=== PATIENT | male | born 1995 | race African-American/Black ===

== ENCOUNTER 2016-11-01 22:17 | Emergency (ER) | payer SELFPAY ==
[~2016-11-01] VITALS: Ht 165.1 cm; Wt 74.0 kg
[2016-11-01 22:21] VITALS: BP 144/67; PULSE 95; RESP 16; TEMP 97.6; O2SAT 99
[2016-11-01] MEDS ORDERED: CEPHALEXIN MONOHYDRATE 500 MG CAP PO ONE (23:00)
[2016-11-01] MEDS ORDERED: TETANUS/DIPHTHERIA TOXOID ADULT 0.5 ML VIAL IM ONE (23:00)
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
[2016-11-01] MEDS ORDERED: ACETAMINOPHEN/HYDROcodone 325 MG/5 MG TAB PO ONE (23:30)
[2016-11-01] MEDS ORDERED: HYDR-3533 PO (23:35)
[2016-11-01] MEDS ORDERED: CEPH-460 PO (23:35)
[2016-11-01] MEDS ORDERED: IBUP800T23 PO (23:35)
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
== END 2016-11-02 01:01 | disposition home or self-care (01) ==
LOC: NEPB 22:17
DX: S80.01XA Contusion of right knee, initial encounter (principal); S50.312A Abrasion of left elbow, initial encounter; S50.812A Abrasion of left forearm, initial encounter; S50.811A Abrasion of right forearm, initial encounter; S60.511A Abrasion of right hand, initial encounter; V27.4XXA Motorcycle driver injured in collision with fixed or stationary object in traffic accident, initial encounter; Z23 Encounter for immunization
CPT/HCPCS: 73564; 90471; 90714

== ENCOUNTER 2016-11-05 13:23 | Emergency (ER) | payer SELFPAY ==
[~2016-11-05] VITALS: Ht 165.1 cm; Wt 75.0 kg
[~2016-11-05 13:23] MED LIST: CEPH-460 PO; HYDR-3533 PO; IBUP800T23 PO
[2016-11-05 13:57] VITALS: BP 124/58; PULSE 74; RESP 15; TEMP 97.9; O2SAT 98
== END 2016-11-05 15:36 | disposition left against medical advice (07) ==
LOC: NED 13:23
DX: Z02.89 Encounter for other administrative examinations (principal)
CPT/HCPCS: 99281